=== PATIENT | female | born 1940 | race Caucasian/White ===

== ENCOUNTER 2024-09-28 18:48 | Emergency (ER) | payer MEDICARE, SELFPAY ==
[2024-09-28 18:50] VITALS: BP 159/81; BMI 27.4
[2024-09-28] MEDS: ZYPREXA 5 MG IM (20:14)
[2024-09-28 20:39] LABS: % Basophils 0.7 % (0-2); % Eosinophils 2.3 % (0-6); % Immature Granulocytes 0.5 % (0-0.5); % Lymphocytes 42.9 % (20.5-51.1); % Monocytes 8.6 % (1.7-9.3); Absolute Basophils 0.1 10^3/uL (0-0.2); Absolute Eosinophils 0.2 10^3/uL (0-0.7); Absolute Lymphocytes 3.7 10^3/uL (1.2-3.4); Absolute Monocytes 0.8 10^3/uL (0.1-0.6); Absolute Neutrophils 3.9 10^3/uL (1.4-6.5); Hematocrit 40.1 % (37.0-47.0); Hemoglobin 13.7 g/dL (12.0-16.0); Mean Corp Hgb Conc. 34.2 g/dL (33.0-37.0); Mean Corpuscular Hgb 35.7 pg (27.0-31.0); Mean Corpuscular Volume 104.4 fL (81.0-99.0); Mean Platelet Volume 10.5 fL (7.4-10.4); Nucleated Red Blood Cells % 0 %; Platelet Count 193 10^3/uL (130-400); Red Blood Cell Count 3.84 10^6/uL (4.20-5.40); Red Cell Dist. Width 12.3 % (11.5-14.5); White Blood Cell Count 8.7 10^3/uL (4.8-10.8)
--- NOTE | 2024-09-28 20:50 | ED.GENMED ---
History of Present Illness
General
Chief Complaint: Change in Mental Status
Source: patient and family
Time Seen by Provider: 09/28/24 20:10
History of Present Illness
History of Present Illness:
84-year-old female suffers from dementia, lives 1 month at a time at her home here in [facility] under the supervision of her daughter at all times who works from home, and then the following month she lives with her daughter in the
[place] area. She is not typically aggressive however over the past week or so daughter states she has been raising her voice and becoming angry for her. She is usually able to calm her down by just leaving the room for a short period of time
and then patient will forget that she is angry. Today however patient became very angry, aggressive, and was swinging at the patient's daughter with a cane. There is no history of recent symptoms such as head strike, loss of consciousness,
lethargy, cough, fever, chills, dyspnea, anorexia. She has chronic back and leg pain. Daughter does state that she was complaining of 'soreness between her legs' about 2 weeks ago, was given cranberry juice and has not complained since. Daughter
wonders if she has UTI.
Past History
Past History
ED Past Medical History: HTN and Other (Breast CVA, dementia, detached retina, A-fib)
ED Past Surgical History: Other (Lumpectomy, eye surgery)
Social History
Tobacco: Non-smoker
Alcohol: Daily
Drug: None
Living: with family
Employment: Not employed
Phy Exam
Physical Exam
Physical Exam:
GENERAL: Alert , in no apparent distress
EYE: pupils equal and reactive, no photophobia, EOMI, no nystagmus
NECK: Supple, no significant adenopathy.
ENT: o/p clr, mmm, no signs of head or facial injury.
CARDIAC: Regular rate and rhythm .
LUNGS: Clear breath sounds bilaterally, no acute respiratory distress, no wheezes/rales/rhonchi
ABDOMEN: Soft, without focal tenderness, no r/g, no cvat
NEUROLOGICAL: Alert but not fully oriented, no focal neuro deficits, cooperative, calm at this time, moves all extremities equally
SKIN: Warm and dry, skin intact.
MUSCULOSKELETAL: No edema, well perfused.
PSYCH: Normal and appropriate interaction.
Course
Orders/Labs/Results
Orders:
Orders
09/28/24 20:12
Olanzapine [Zyprexa] 5 mg IM NOW STA
09/28/24 20:13
Sterile Water [Sterile Water For Injection] 10 ml .ROUTE .ST-MED ONE
09/28/24 20:29
Complete Blood Count/With Diff Urgent
09/28/24 20:53
Electrocardiogram (*1) Urgent
Reason for Study: Other
Other Reason for Exam: aggression
EKG- Treatment ONCE
09/28/24 20:57
Urinalysis Reflex To Culture Urgent
Date Specimen was Collected: 09/28/24
Time Specimen was Collected: 20:57
09/28/24 21:02
Comprehensive Metabolic Panel Urgent
09/28/24 21:24
CT Head W/o Iv Contrast Urgent
Comment:
Reason For Exam: mental status change
Abnormal Lab Results
09/28/24 09/28/24
20:29 21:02
RBC 3.84 L 10^6/uL
(4.20-5.40)
MCV 104.4 H fL
(81.0-99.0)
MCH 35.7 H pg
(27.0-31.0)
MPV 10.5 H fL
(7.4-10.4)
Absolute Lymphs (auto) 3.7 H 10^3/uL
(1.2-3.4)
Absolute Monos (auto) 0.8 H 10^3/uL
(0.1-0.6)
BUN 20 H mg/dl
(7-17)
Glucose 109 H mg/dl
(70-99)
09/28/24 20:29
09/28/24 21:02
Vital Signs
Initial and Last Documented VS:
Initial Vital Signs
Temp Pulse Resp BP Pulse Ox
98 F 89 18 159/81 97
09/28/24 18:50 09/28/24 18:50 09/28/24 18:50 09/28/24 18:50 09/28/24 18:50
Last Documented Vital Signs
Temp Pulse Resp BP Pulse Ox
98 F 89 18 159/81 97
09/28/24 18:50 09/28/24 18:50 09/28/24 18:50 09/28/24 18:50 09/28/24 18:50
*Critical Care Note
Total Time (30-74mins, 75-104mins- exclusive of procedures): Not Applicable
Update Note
Update Note:
Patient presents to the Emergency Department with aggression
Number and Complexity of Problems Addressed at the Encounter
� Chronic conditions affecting care:
� Acute Exacerbation and/or Progression of Chronic Illness:
� Differential Diagnosis includes: But not limited to infection such as UTI, dementia related behavioral changes, etc.
Amount and/or Complexity of Data to be Reviewed and Analyzed
� I performed an independent evaluation of and my interpretation is:
EKG:read by , afib, no acute ischemia, rate controlled
CT:read by cole gil
Xrays:
Laboratory Studies:generally unremarkable
Other:
� Review of other/old records reveals:
� Clinical information was obtained by an independent historian: Daughter and niece who are here in the ED
� Prescriptions/Medications Considered but not given:
� Further testing considered but not performed:
Risk of Complications and/or Morbidity or Mortality of Patient Management
� Social determinants of health affecting care:
� Discussion with other providers (PCP, Hospitalists, Consultants, etc):
� Escalation of care including admission/observation vs risk of discharge considered:1026 pm long d/w daughter. Pt resting comfortably, no agression noted here. No medical acute condition noted, ex infection, ex bleed etc.
Suspect dementia related aggresion. Was just stgarted on sertaline about a month ago, 'low dosE'. Shefali with d/w prescirbing geriatric doctor in AM regarding furthe rmanagement.
ED Attending Note
-
Portions of this chart may have been created with voice recognition software.� Occasional wrong word or��sound alike� substitutions may have occurred due to the inherent limitations of voice recognition software.
Discharge Plan
Departure
Patient Disposition: Home (Routine Discharge)
Date of Disposition: 09/28/24
Time of Disposition: 22:24
Patient with high blood pressure during this ER visit?: Yes
Condition: Good
Discharge Problem:
Agitation
Instructions: Dementia (including Alzheimer disease), BLOOD PRESSURE
Prescriptions:
No Action
losartan 50 MG tablet
50 mg PO DAILY
furosemide 40 mg tablet
40 mg PO DAILY
metoprolol succinate 100 mg tablet extended release 24 hr
100 mg PO DAILY
acetaminophen 500 mg Tablet
1,000 mg PO DAILY
sertraline 25 mg tablet
25 mg PO DAILY
Eliquis 5 mg tablet
5 mg PO BID
Referrals:
Justin Dixon MD [Family Provider] -
Activity Restrictions/Additional Instructions:
PLEASE CONTACT HER DOCTOR TOMORROW REGARDING FURHTER MANAGEMENT. IF RADHA DEVELOPS A FEVER, VOMITING, INCREASING CONFUSION, OR OTHER WORRISOME SIGNS, GO TO THE ER IMMEDIATELY!
Interventions
Interventions:
*Risk Screen - Suicide Last Done: 09/28/24 18:56
*General Assessment Last Done: 09/28/24 18:56
*Neglect/Abuse Screening Last Done: 09/28/24 18:56
*ED COVID-19 Vaccine History Last Done: 09/28/24 18:56
ED- Pulmonary Assessment Last Done: 09/28/24 19:00
ED- Neurological Assessment Last Done: 09/28/24 19:00
ED- Cardiac Assessment Last Done: 09/28/24 19:00
Discharge Date and Time
Print Language: UGANDAN
[2024-09-28 21:09] LABS: Urine Albumin Negative (Neg - Trace); Urine Bilirubin Negative (Negative); Urine Character Clear (Clear); Urine Color Yellow; Urine Glucose Negative (Negative); Urine Ketone Negative (Negative); Urine Leukocyte Negative (Negative); Urine Nitrite Negative (Negative); Urine Occult Blood Negative (Negative); Urine Specific Gravity 1.015 (<1.030); Urine Urobilinogen Negative (Neg - 1+)
[2024-09-28 21:26] LABS: ALT (SGPT) 24 U/L (0-35); AST (SGOT) 32 U/L (14-36); Alkaline Phosphatase 80 U/L (38-126); Blood Urea Nitrogen 20 mg/dl (7-17); Calcium 9.4 mg/dl (8.4-10.2); Carbon Dioxide 25 mmol/L (22-30); Chloride 103 mmol/L (98-107); Estimated Creatinine Clearance 64 ml/min; Glucose 109 mg/dl (70-99); Potassium 3.6 mmol/L (3.5-5.1); Sodium 138 mmol/L (135-145); Total Bilirubin 0.5 mg/dl (0.2-1.3); Total Protein 6.9 g/dl (6.3-8.2); eGFR > 60.00
[2024-09-28 22:38] VITALS: BP 151/79
== END 2024-09-28 22:39 | disposition home or self-care (01) ==
LOC: EMR 18:48
PROVIDERS: EMERGENCY PHYSICIAN Emergency Medicine; FAMILY PHYSICIAN Internal Medicine
DX: R45.1 Restlessness and agitation (principal); M79.606 Pain in leg, unspecified; F03.911 Unspecified dementia, unspecified severity, with agitation; G89.29 Other chronic pain; M54.9 Dorsalgia, unspecified; I10 Essential (primary) hypertension; I48.91 Unspecified atrial fibrillation; K57.90 Diverticulosis of intestine, part unspecified, without perforation or abscess without bleeding; Z85.3 Personal history of malignant neoplasm of breast
CPT/HCPCS: 99284; 96372; 70450; 80053; 81003; 85025; 93005; J2358